=== PATIENT | male | born 2000 | race Caucasian/White ===

== ENCOUNTER 2025-01-17 08:12 | Emergency (ER) | payer SELFPAY ==
[2025-01-17 08:27] VITALS: TEMP 99.7; BMI 31.0
[2025-01-17] MEDS ORDERED: IBUPROFEN 400 MG TABLET (FP) PO ONE (09:19)
[2025-01-17] MEDS: IBUPROFEN 400 MG TABLET (FP) PO ONE (09:21)
[2025-01-17 09:41] VITALS: BP 135/82; RESP 16
== END 2025-01-17 10:28 | disposition home or self-care (01) ==
LOC: FER 08:12
DX: R21 Rash and other nonspecific skin eruption (principal); B02.9 Zoster without complications
CPT/HCPCS: 99285-25